=== PATIENT | male | born 1965 | race Caucasian/White ===

== ENCOUNTER → 2024-01-16 15:48 | Outpatient (REF) | payer OTHER, SELFPAY ==
[2024-01-16 18:13] LABS: % Basophils 1.2 % (0-2); % Eosinophils 3.5 % (0-6); % Immature Granulocytes 0.2 % (0-0.5); % Lymphocytes 35.1 % (20.5-51.1); % Monocytes 12.4 % (1.7-9.3); % Neutrophils 47.6 % (42.2-75.2); Absolute Basophils 0.1 10^3/uL (0-0.2); Absolute Eosinophils 0.2 10^3/uL (0-0.7); Absolute Lymphocytes 1.8 10^3/uL (1.2-3.4); Absolute Monocytes 0.6 10^3/uL (0.1-0.6); Absolute Neutrophils 2.5 10^3/uL (1.4-6.5); Hematocrit 38.3 % (39.0-52.0); Hemoglobin 13.1 g/dL (13.0-18.0); Mean Corp Hgb Conc. 34.2 g/dL (33.0-37.0); Mean Corpuscular Hgb 28.7 pg (27.0-31.0); Mean Corpuscular Volume 83.8 fL (80.0-94.0); Mean Platelet Volume 10.7 fL (7.4-10.4); Nucleated Red Blood Cells % 0 % (-); Platelet Count 172 10^3/uL (130-400); Red Blood Cell Count 4.57 10^6/uL (4.70-6.10); Red Cell Dist. Width 13.1 % (11.5-14.5); White Blood Cell Count 5.2 10^3/uL (4.8-10.8)
[2024-01-16 18:39] LABS: Blood Urea Nitrogen 17 mg/dl (9-20); Calcium 9.8 mg/dl (8.4-10.2); Carbon Dioxide 24 mmol/L (22-30); Chloride 102 mmol/L (98-107); Glucose 91 mg/dl (70-99); Potassium 3.8 mmol/L (3.5-5.1); Sodium 138 mmol/L (135-145); eGFR > 60.00
== END ==
LOC: ECG 15:48
PROVIDERS: ATTENDING PHYSICIAN Orthopaedic Surgery
DX: S83.241A Other tear of medial meniscus, current injury, right knee, initial encounter (principal)
CPT/HCPCS: 36415; 80048; 85025; 93005

== ENCOUNTER 2025-07-22 17:33 | Emergency (ER) | payer OTHER, SELFPAY ==
[2025-07-22 17:34] VITALS: BP 167/109
--- NOTE | 2025-07-22 18:24 | ED.GENMED ---
History of Present Illness
General
Chief Complaint: Head Injury
Time Seen by Provider: 07/22/25 18:09
History of Present Illness
History of Present Illness:
60-year-old male presents the emergency department for evaluation of a head injury. He fell backwards about 1 to 2 hours ago and struck his head against a foundation of his house. No LOC. Denies headache currently. He is concerned due to mild
dizziness that he describes as lightheadedness. No vision changes, neck pain, or extremity paresthesias. Takes no antiplatelets or anticoagulants.
Past History
Past History
ED Past Medical History: None
ED Past Surgical History: None
Social History
Tobacco: Non-smoker
Alcohol: None
Drug: None
Personal:
Living: with family
Review of Systems
Review of Systems
Allergies reviewed?: Yes
All Other Systems: ROS reviewed and negative except as documented in HPI and ROS
Phy Exam
Physical Exam
Physical Exam:
GEN: Well appearing, NAD, WDWN
HEENT: Small hematoma to the right parietal scalp with overlying abrasion, no open wound, no crepitus, oral mucosa moist, no scleral icterus
Cardiac: Regular rate
Lung: No respiratory distress, no tachypnea
MSK: No gross deformity or injuries, no midline cervical spine tenderness
Skin: Good color, no pallor or jaundice, no rashes
Neuro: AO x3, cranial nerves II through XII grossly intact, moves all extremities freely
Psych: Calm, cooperative
Course
Vital Signs
Initial and Last Documented VS:
Initial Vital Signs
Temp Pulse Resp BP Pulse Ox
98 F 74 16 167/109 98
07/22/25 17:34 07/22/25 17:34 07/22/25 17:34 07/22/25 17:34 07/22/25 17:34
Last Documented Vital Signs
Temp Pulse Resp BP Pulse Ox
98 F 74 16 167/109 98
07/22/25 17:34 07/22/25 17:34 07/22/25 17:34 07/22/25 17:34 07/22/25 18:24
MDM/Problems Addressed
MDM/Problems Addressed:
Patient is alert and oriented with no headache or neurologic deficits. Low clinical suspicion for intracranial hemorrhage or skull fracture. Educated on supportive care
*Pulse Oximetry
SaO2: 98
Oxygen Mode of Delivery: Room air
Patient hypoxic: no
*Critical Care Note
Total Time (30-74mins, 75-104mins- exclusive of procedures): Not Applicable
ED Attending Note
-
Portions of this chart may have been created with voice recognition software.� Occasional wrong word or��sound alike� substitutions may have occurred due to the inherent limitations of voice recognition software.
Discharge Plan
Departure
Patient Disposition: Home (Routine Discharge)
Date of Disposition: 07/22/25
Time of Disposition: 18:24
Patient with high blood pressure during this ER visit?: No
Discharge Problem:
CHI (closed head injury)
Instructions: Head Injury in Adults (DC)
Prescriptions:
No Action
triamcinolone acetonide [Nasacort AQ] 16.5 GM aerosol,spray
16.5 gm NS DAILY Qty: 1 0RF
perindopril erbumine [Aceon] 4 MG tablet
2 mg PO DAILY
atorvastatin 10 MG tablet
20 mg PO HS
Activity Restrictions/Additional Instructions:
Return to the emergency department if you develop symptoms such as severe headache, vomiting more than once in the next 24 hours, or severe dizziness
Interventions
Interventions:
*Risk Screen - Suicide Last Done: 07/22/25 17:34
*General Assessment Last Done: 07/22/25 17:34
*ED COVID-19 Vaccine History Last Done: 07/22/25 18:56
*ED Influenza Vaccine History Last Done: 07/22/25 18:56
*Nursing Disposition Last Done: 07/22/25 19:01
Discharge Date and Time
Discharge Date/Time: 07/22/25 18:50
Print Language: OCCITAN
== END 2025-07-22 18:50 | disposition home or self-care (01) ==
LOC: EMR 17:33
PROVIDERS: EMERGENCY PHYSICIAN Emergency Medicine; FAMILY PHYSICIAN Family Medicine
DX: S09.90XA Unspecified injury of head, initial encounter (principal); W19.XXXA Unspecified fall, initial encounter
CPT/HCPCS: 99282